=== PATIENT | male | born 1930 | race Caucasian/White ===

== ENCOUNTER 2016-06-08 00:24 | Emergency (ER) | payer MEDICARE ==
[2016-06-08 00:51] LABS: BILIRUBIN NEGATIVE (NEGATIVE); BLOOD TRACE-INTACT Ery/uL (NEGATIVE); CLARITY CLEAR (CLEAR); COLOR YELLOW (YELLOW); GLUCOSE (U) NORMAL (NORMAL); KETONE (U) NEGATIVE (NEGATIVE); LEUKOCYTES TRACE Leu/uL (NEGATIVE); NITRITE NEGATIVE (NEGATIVE); PROTEIN NEGATIVE (NEGATIVE); SPECIFIC GRAVITY >=1.030 (1.001-1.030); pH 5.5 (5.0-9.0)
[2016-06-08 00:58] LABS: AMORPHOUS URATES CRYSTALS MODERATE
[2016-06-08 01:18] LABS: HGB 14.8 g/dl (13.2-18.0); MCH 32.5 pg (25.0-31.0); MCHC 34.4 g/dL (32.0-36.0); MCV 94.5 fL (78.0-100.0); PLT 256 K/uL (150-400); RBC 4.55 M/uL (4.70-6.00); WBC 15.8 K/uL (4.0-10.5)
[2016-06-08 01:29] LABS: ALBUMIN 4.3 g/dL (3.4-4.8); BILIRUBIN - TOTAL 0.9 mg/dL (0.1-1.0); CREATININE 1.2 mg/dL (0.7-1.2); GLOBULIN (CALCULATION) 3.2 g/dL (2.2-4.2); POTASSIUM 4.3 mmol/L (3.5-5.1); TOTAL PROTEIN 7.5 g/dL (6.4-8.3)
== END 2016-06-08 03:00 | disposition home or self-care (01) ==
LOC: FER 00:24
PROVIDERS: Emergency Medicine
DX: K52.9 Noninfective gastroenteritis and colitis, unspecified (principal); I48.91 Unspecified atrial fibrillation; E78.5 Hyperlipidemia, unspecified; F03.90 Unspecified dementia, unspecified severity, without behavioral disturbance, psychotic disturbance, mood disturbance, and anxiety; Z95.1 Presence of aortocoronary bypass graft; Z87.442 Personal history of urinary calculi; Z87.891 Personal history of nicotine dependence; Z79.82 Long term (current) use of aspirin; Z79.899 Other long term (current) drug therapy
CPT/HCPCS: 36415; 80053; 81001; 82150; 83605; 83690; 87076; 87088; 87186